=== PATIENT | male | born 1995 | race Caucasian/White ===

== ENCOUNTER 2022-11-12 15:18 | Outpatient (CLI) | payer BC, SELFPAY ==
[2022-11-12 15:47] LABS: Sperm Immotility 40 % (50-60)
[2022-11-12 15:48] LABS: Sperm Non-Progressive Motility 5 % (5-10); Sperm Progressive Motility 55 % (31-34); White Blood Count Semen Rare /hpf
[2022-11-12 15:49] LABS: Viscosity Semen Droplets
[2022-11-12 15:51] LABS: PH Semen 7.5 (7.0-8.0)
== END 2022-11-12 15:19 | disposition home or self-care (01) ==
LOC: LAB 15:26
PROVIDERS: Family Provider Electrodiagnostic Medicine; Visit Provider Obstetrics & Gynecology
DX: Z01.89 Encounter for other specified special examinations (principal)
CPT/HCPCS: 80503; 89320

== ENCOUNTER 2023-03-08 11:08 | Outpatient (CLI) | payer BC, SELFPAY ==
--- NOTE | 2023-03-08 11:30 | XR_ITS ---
WS: [id number] Exam: XR lumbar spine 2-3V* [id number] Date/Time of Exam: 03/08/2023 11:31 AM Reason For Exam: Low back pain No acute fracture or dislocation. Disc spaces are preserved. Posterior elements are intact. Schmorl's nodes identified involving T12, L1-L2 and L3. Slight levoscoliosis that may be positional. XR/XR lumbar spine 2-3V* [id number] IMPRESSION: 1. No fracture or malalignment identified. 2. Other minor findings as above.
== END 2023-03-08 11:09 | disposition home or self-care (01) ==
PROVIDERS: Family Provider Electrodiagnostic Medicine; PCP Family Medicine; Visit Provider Registered Nurse Neonatal Intensive Care
DX: M54.50 Low back pain, unspecified (principal)
CPT/HCPCS: 72100

== ENCOUNTER 2023-05-23 20:00 | Outpatient (CLI) | payer BC, SELFPAY | END 2023-05-23 20:01 | disposition home or self-care (01) | LOC: SLEEP 05-24 06:13 | PROVIDERS: Family Provider Electrodiagnostic Medicine; PCP Family Medicine; Visit Provider Nurse Practitioner Family | DX: G47.33 Obstructive sleep apnea (adult) (pediatric) (principal) | CPT/HCPCS: 95810 ==

== ENCOUNTER → 2023-06-14 12:42 | Outpatient (BNVA) | payer BC, SELFPAY | PROVIDERS: Family Provider Electrodiagnostic Medicine; PCP Family Medicine; Visit Provider Registered Nurse Neonatal Intensive Care | DX: R05.9 Cough, unspecified (principal) | CPT/HCPCS: 87426 ==

== ENCOUNTER 2023-07-12 20:00 | Outpatient (CLI) | payer BC, SELFPAY | END 2023-07-12 20:01 | disposition home or self-care (01) | LOC: SLEEP 07-13 04:38 | PROVIDERS: Family Provider Electrodiagnostic Medicine; PCP Family Medicine; Visit Provider Nurse Practitioner Family | DX: G47.33 Obstructive sleep apnea (adult) (pediatric) (principal) | CPT/HCPCS: 95811 ==

== ENCOUNTER 2023-11-21 13:52 | Outpatient (CLI) | payer BC, SELFPAY ==
[2023-11-21 14:06] LABS: Pathology Referral Yes
[2023-11-21 14:37] LABS: Epithelial Count Semen 0-4 /hpf; Red Blood Count Semen 0-4 /hpf; Sperm Immotility 10 % (50-60); Sperm Non-Progressive Motility 10 % (5-10); Sperm Progressive Motility 80 % (31-34); Viscosity Semen Droplets
== END 2023-11-21 13:53 | disposition home or self-care (01) ==
PROVIDERS: Family Provider Electrodiagnostic Medicine; PCP Family Medicine; Visit Provider Urology
DX: Z31.41 Encounter for fertility testing (principal)
CPT/HCPCS: 80503; 89320

== ENCOUNTER → 2023-12-28 11:28 | Outpatient (BNVA) | payer BC, SELFPAY | PROVIDERS: Family Provider Electrodiagnostic Medicine; PCP Family Medicine; Visit Provider Nurse Practitioner Family | DX: J02.9 Acute pharyngitis, unspecified (principal) | CPT/HCPCS: 87880 ==

== ENCOUNTER 2023-12-29 11:39 | Emergency (ER) | payer BC, SELFPAY ==
[2023-12-29 12:26] VITALS: BP 141/96; PULSE 89; RESP 18; TEMP 37.1; O2SAT 97; BMI 46.6
[2023-12-29] MEDS: sodium chloride 0.9% 1,000 ML 999 ML IV (13:21)
[2023-12-29] MEDS: ondansetron 2 mg/ML SDV 2 mL 4 MG IVP (13:21)
[2023-12-29 13:23] LABS: Basophils % 0.3 %; Eosinophils % 0.5 %; Hematocrit 47.9 % (37-53); Lymphocytes # 1.6 10^3/uL (0.8-4.8); Lymphocytes % 24.7 %; Mean Corpuscular HGB Conc 32.4 g/dL (30-55); Mean Corpuscular Hemoglobin 28.4 pg (27-33); Mean Corpuscular Volume 87.7 fl (82-101); Mean Platelet Volume 11.9 fL (7.4-10.4); Monocytes # 0.7 10^3/uL (0.2-0.9); Monocytes % 10.4 %; Neutrophils # 4.04 10^3/uL (1.8-7.7); Neutrophils % 63.6 %; Nucleated Red Blood Cells % 0 %; Platelet Count 157 10^3/cmm (157-399); Red Blood Count 5.46 10^6/uL (3.85-5.65); Red Cell Distribution Width 12.4 % (12.1-15.1); White Blood Count 6.35 10^3/uL (3.29-11.43)
[2023-12-29 13:43] LABS: Alanine Aminotransferase 20 U/L (0-41); Albumin Level 4.2 g/dL (3.5-5.2); Alkaline Phosphatase 71 U/L (40-130); Aspartate Amino Transferase 13 U/L (0-40); Blood Urea Nitrogen 8 mg/dL (6-20); Calcium 9.1 mg/dL (8.5-10.5); Carbon Dioxide 23 mmol/L (22-29); Chloride 103 mmol/L (98-107); Creatinine Clr Calc Pharmacy 180.7941; Globulin 3.4 g/dL (1.3-4.6); Glucose 105 mg/dL (65-115); Lipase 12 U/L (13-60); Osmolality Calculated 287 mOsm/kg (285-295); Sodium 139 mmol/L (136-145); Total Bilirubin 0.6 mg/dL (0.15-1.2); Total Protein 7.6 g/dL (6.6-8.7)
[2023-12-29 13:49] LABS: Alcohol Level < 10 mg/dL (0-10)
--- NOTE | 2023-12-29 13:50 | ED_ITS ---
HPI - Nausea/Vomiting/Diarrhea 2 General: Chief complaint: Nausea/Vomiting/Diarrhea Stated complaint: cough, headahce, N/V Time Seen by Provider: 12/29/23 12:42 Source: patient Mode of arrival: ambulatory History of Present Illness: 28-year-old male presents emergency room complaining nausea vomiting headache cough generalized bodyaches. Cough has been [id number] several people who are COVID-positive he was seen in walk-in clinic few days ago started having upper respiratory infection and discharged home. Denies diarrhea. MD elicited complaint: nausea and vomiting Onset (ago): day(s) Associated nausea: No Location of pain: None Quality: cramping Exacerbating factors: none Relieving factors: none Associated symtoms: Denies altered mental status, anxiety, bloating, change in vision, chest pain, cough, diaphoresis, decreased urine output, dizziness, dysuria, epistaxis, fatigue, fecal incontinence, fevers/chills, headache(s), anorexia, malaise, myalgias, nausea, numbness, palpitations, rash, short of breath, syncope, tenesmus, tinnitus or weakness Review of Systems 2 Const: Denies: fatigue, malaise or diaphoresis Eyes: Denies: change in vision ENMT: Denies: tinnitus or epistaxis Card: Denies: chest pain, palpitations or syncope Resp: Denies: dyspnea GI: Denies: nausea, bloating or fecal incontinence : Denies: dysuria Musc: Denies: neck pain or back pain Skin/Breast: Denies: rash Neuro: Denies: headache(s) or dizziness Psych: Denies: anxiety Physical Exam 2 Const: COMMON NORMALS: no acute distress EXAM LIMITATIONS: no altered mental status GENERAL APPEARANCE: cooperative and comfortable O RIENTATION/CONSCIOUSNESS: Yes awake, Yes oriented to person, Yes oriented to place and Yes oriented to time HENMT: COMMON NORMALS: normocephalic, atraumatic and hearing grossly normal bilaterally HEAD & SCALP: normocephalic and atraumatic Resp: COMMON NORMALS: normal respiratory effort, No retractions, No use of accessory muscles and clear to auscultation bilaterally AUSCULTATION: clear to auscultation bilaterally Cardio: COMMON NORMALS: regular rate, regular rhythm and No murmurs present (Cardio) RATE: regular rate RHYTHM: regular rhythm GI: COMMON NORMALS: Soft to palpation and No hepatosplenomegaly present A USCULTATION: Yes normoactive bowel sounds PALPATION: Yes Soft to palpation, No Tenderness to palpation present (GI), No Guarding due to palpation present (GI) and Yes No hepatosplenomegaly present Extremity: COMMON NORMALS: normal to inspection, capillary refill normal, no clubbing, cyanosis or edema, no calf tenderness and no pedal edema Neuro: SENSORIUM/ORIENTATION: Yes oriented to person, Yes oriented to place and Yes oriented to time Skin: COMMON NORMALS: no rashes or lesions noted GENERAL SKIN EXAM: no rashes or lesions noted Course 2 Vital Signs: Vital signs: Vital Signs Temperature 98.8 F 12/29/23 15:39 Pulse Rate 89 12/29/23 15:39 Respiratory Rate 18 12/29/23 15:39 Blood Pressure 141/96 12/29/23 15:39 Pulse Oximetry 97 12/29/23 15:39 Oxygen Delivery Me thod Room Air 12/29/23 12:26 MDM - Nausea/Vomiting/Diarrhea Medical Decision Making Labs and imaging reviewed no significant leukocytosis chest x-ray unremarkable. Swabs show positive for influenza A. He is outside of the window of opportunity to treat with antivirals supportive cares and follow-up as needed Medical Records I reviewed the patient's medical records. Lab Data I reviewed the patient's lab results. 12/29/23 13:13 12/29/23 13:13 Laboratory Results WBC 6.35 10^3/uL (3.29-11.43) 12/29/23 13:13 RBC 5.46 10^6/uL (3.85-5.65) 12/29/23 13:13 Hgb 15.50 g/dL (11.27-16.99) 12/29/23 13:13 Hct 47.9 % (37-53) 12/29/23 13:13 MCV 87.7 fl (82-101) 12/29/23 13:13 MCH 28.4 pg (27-33) 12/29/23 13:13 MCHC 32.4 g/dL (30-55) 12/29/23 13:13 RDW 12.4 % (12.1-15.1) 12/29/23 13:13 Plt Count 157 10^3/cmm (157-399) 12/29/23 13:13 MPV 11.9 fL (7.4-10.4) H 12/29/23 13:13 Neut % (Auto) 63.6 % 12/29/23 13:13 Lymph % (Auto) 24.7 % 12/29/23 13:13 [place] % (Auto) 10.4 % 12/29/23 13:13 Eos % (Auto) 0.5 % 12/29/23 13:13 Baso % (Auto) 0.3 % 12/29/23 13:13 Neut # (Auto) 4.04 10^3/uL (1.8-7.7) 12/29/23 13:13 Lymph # (Auto) 1.6 10^3/uL (0.8-4.8) 12/29/23 13:13 [place] # (Auto) 0.7 10^3/uL (0.2-0.9) 12/29/23 13:13 Eos # (Auto) 0.0 10^3/uL (0.0-0.8) 12/29/23 13:13 Baso # (Auto) 0.0 10^3/uL (0.0-0.1) 12/29/23 13:13 Nucleated RBC % (auto) 0 % 12/29/23 13:13 Nucleated RBCs # 0.0 /100WBC 12/29/23 13:13 Sodium 139 mmol/L (136-145) 12/29/23 13:13 Potassium 4.0 mmol/L (3.5-5.1) 12/29/23 13:13 Chloride 103 mmol/L (98-107) 12/29/23 13:13 Carbon Dioxide 23 mmol/L (22-29) 12/29/23 13:13 Anion Gap 17.0 (5-19) 12/29/23 13:13 BUN 8 mg/dL (6-20) 12/29/23 13:13 Creatinine 0.9 mg/dL (0.7-1.2) 12/29/23 13:13 GFR Calculation 102.0 mL/min (90-130) 12/29/23 13:13 Glucose 105 mg/dL (65-115) 12/29/23 13:13 Calculated Osmolality 287 mOsm/kg (285-295) 12/29/23 13:13 Calcium 9.1 mg/dL (8.5-10.5) 12/29/23 13:13 Magnesium 2.0 mg/dL (1.7-2.3) 12/29/23 13:13 Total Bilirubin 0.6 mg/dL (0.15-1.2) 12/29/23 13:13 AST 13 U/L (0-40) 12/29/23 13:13 ALT 20 U/L (0-41) 12/29/23 13:13 Alkaline Phosphatase 71 U/L (40-130) 12/29/23 13:13 Total Protein 7.6 g/dL (6.6-8.7) 12/29/23 13:13 Albumin 4.2 g/dL (3.5-5.2) 12/29/23 13:13 Globulin 3.4 g/dL (1.3-4.6) 12/29/23 13:13 Lipase 12 U/L (13-60) L 12/29/23 13:13 Urine Color Yellow (Yellow) 12/29/23 12:36 Urine Appearance Sl hazy (CLEAR) A 12/29/23 12:36 Urine pH 9 (5-7) H 12/29/23 12:36 Ur Specific [place] 1.010 (1.005-1.030) 12/29/23 12:36 Urine Protein Neg (Negative) 12/29/23 12:36 Urine Glucose (UA) Norm (Normal) 12/29/23 12:36 Urine Ketones Negative (Negative) 12/29/23 12:36 Urine Blood Neg (Negative) 12/29/23 12:36 Urine Nitrate Negative (Negative) 12/29/23 12:36 Urine Bilirubin Neg (Negative) 12/29/23 12:36 Prot Sulfosalicylic Acd Negative (Negative) 12/29/23 12:36 Urine Urobilinogen 1 mg/dL (Negative) H 12/29/23 12:36 Ur Leukocyte Esterase Negative (Negative) 12/29/23 12:36 Urine RBC Rare /hpf (0-2) 12/29/23 12:36 Urine WBC 0-4 /hpf (0-5) H 12/29/23 12:36 Ur Squamous Epith Cells Rare /hpf (0-5) 12/29/23 12:36 Amorphous Sediment 2+ /hpf 12/29/23 12:36 Urine Bacteria Trace /hpf (NONE) 12/29/23 12:36 Urine Mucus Trace /hpf 12/29/23 12:36 Ethyl Alcohol < 10 mg/dL (0-10) 12/29/23 13:13 Influenza Type A Ag positive (Negative) H 12/29/23 14:33 Influenza Type B Ag negative (Negative) 12/29/23 14:33 Group A Strep Rapid Negative (Negative) 12/29/23 14:33 All radiology interpretation(s) finalized by discharge Discharge Plan Discharge Patient Disposition: Home Clinical Impression: Influenza A Condition: Stable Prescriptions: No Action acetaminophen 325 mg Tablet 650 mg PO QID PRN (Reason: Pain) Discharge Orders: Discharge ED (Routine); Ordered 12/29/23 Ordered By: Sidney Lui Discharge Diet: Usual diet Discharge Activity: Increase activity as tolerated Patient Instructions: Influenza (ED), Opioid Safety, Pain Management Activity Restrictions/Additional Instructions: Thank you for choosing [facility] for your healthcare needs today. Please realize this is an emergency room and that we are providing you with a medical screening exam and this may not be complete and all inclusive of all the testing and or work up that you may need to determine your ailment or severity of your illness. It is very important that you follow up as instructed or that you return to the Emergency Department should you have concerns or if your condition changes or worsens in any way. Coding Level of Care Code ED La[employer] Technician for Marlene Carey
--- NOTE | 2023-12-29 13:51 | XR_ITS ---
WS: [id number] Portable AP upright chest, 12/29/2023 Clinical Data: dyspnea/cough Comparison: Two-view chest, 04/07/2021 Findings: No nodules, masses or effusions are seen. The heart is normal. The pulmonary vascularity is not increased. No pneumonia or pneumothorax is seen. Impression: Negative chest.
[2023-12-29 14:42] LABS: Influenza A by IFA positive (Negative); Influenza B by IFA negative (Negative)
[2023-12-29 14:47] LABS: Rapid Strep A Test Negative (Negative)
[2023-12-29 15:22] LABS: Bilirubin Urine Neg (Negative); Blood Urine Neg (Negative); Glucose Urine UA Norm (Normal); Ketones Urine Negative (Negative); Leukocyte Esterase Urine Negative (Negative); Nitrate Urine Negative (Negative); Protein Urine Neg (Negative); Sulfosalicylic Acid Urine Negative (Negative); Urine Appearance SL Hazy (CLEAR); Urine Color Yellow (Yellow); Urobilinogen Urine 1 mg/dL (Negative); pH Urine 9 (5-7)
[2023-12-29 15:23] LABS: Add Urine Microscopic? YES
[2023-12-29 15:25] LABS: Amorphous Sediment Urine 2+ /hpf; Bacteria Urine TRACE /hpf; Mucus Urine TRACE /hpf; RBC Urine RARE /hpf (0-2); Squamous Epithelial Cell Urine RARE /hpf (0-5); WBC Urine 0-4 /hpf (0-5)
[2023-12-29 15:26] LABS: Add Urine Culture? No
[2023-12-29 15:39] VITALS: BP 141/96; PULSE 89; RESP 18; TEMP 37.1; O2SAT 97
[2023-12-29 16:22] LABS: Adenovirus Not Detected (NOT DETECT); Chlamydia Pneumoniae Not Detected (NOT DETECT); Coronavirus 229E,HKU1,NL63,OC4 Not Detected (NOT DETECT); Human Metapneumovirus Not Detected (NOT DETECT); Human Rhinovirus/Enterovirus Not Detected (NOT DETECT); Influenza A Detected (NOT DETECT); Influenza A H1 Not Detected (NOT DETECT); Influenza A H1-2009 Not Detected (NOT DETECT); Influenza A H3 Detected (NOT DETECT); Influenza B Not Detected (NOT DETECT); Mycoplasma Pneumoniae Not Detected (NOT DETECT); Parainfluenza Virus Type 1 Not Detected (NOT DETECT); Parainfluenza Virus Type 2 Not Detected (NOT DETECT); Parainfluenza Virus Type 3 Not Detected (NOT DETECT); Parainfluenza Virus Type 4 Not Detected (NOT DETECT); Respiratory Syncytial Virus A Not Detected (NOT DETECT); Respiratory Syncytial Virus B Not Detected (NOT DETECT); SARS-COV-2 Not Detected (NOT DETECT)
[2023-12-29 17:11] LABS: Influenza A Detected (NOT DETECT); Influenza A H1 Not Detected (NOT DETECT); Influenza A H1-2009 Not Detected (NOT DETECT); Influenza A H3 Detected (NOT DETECT); Influenza B Not Detected (NOT DETECT); Results from GEN
== END 2023-12-29 15:39 | disposition home or self-care (01) ==
PROVIDERS: Emergency Provider Family Medicine
DX: J10.1 Influenza due to other identified influenza virus with other respiratory manifestations (principal); Z11.52 Encounter for screening for COVID-19
CPT/HCPCS: 36415; 71045; 80053; 80307; 81001; 83690; 83735; 85025; 87081; 87631; 87635; 87804; 87880; 96374; 99284; J2405; J7030

== ENCOUNTER → 2025-01-04 13:24 | Outpatient (BNVA) | payer BC, SELFPAY | PROVIDERS: Visit Provider Registered Nurse Neonatal Intensive Care | DX: J02.9 Acute pharyngitis, unspecified (principal) | CPT/HCPCS: 87880 ==

== ENCOUNTER → 2025-01-07 07:23 | Outpatient (BNVA) | payer BC, SELFPAY | DX: R05.9 Cough, unspecified (principal) | CPT/HCPCS: 87426 ==